=== PATIENT | female | born 1930 | race Caucasian/White ===

== ENCOUNTER 2018-01-06 14:36 | Inpatient (IN) | payer MEDICARE ==
[~2018-01-06] VITALS: Ht 165.1 cm; Wt 85.8 kg
--- NOTE | ~2018-01-06 | PSY ---
PATIENT NAME:CONSTANCE SALINAS MEDICAL RECORD: [id number] : 34 LOCATION:[facility] [place]1127 ADMISSION DATE: 01/06/18 ACCOUNT: [id number] PSYCHIATRIC EVALUATION DATE OF EVALUATION: 01/07/18 IDENTIFYING DATA: The patient is 87 years old and she is admitted to the hospital on a voluntary basis because of agitation. CHIEF COMPLAINT: None. HISTORY OF PRESENT ILLNESS: The patient lives in a local care home. She recently has become increasingly confused and agitated. The agitation has consisted of her screaming, being confused, attempting to stand and then falling. She has required multiple p.r.n. medications for this agitation and even though she is showing an extremely high level of emotional distress, she is verbal but unable to relate what the distress is about. PAST MEDICAL HISTORY: Significant for pneumonia, hypertension, coronary artery disease, and diabetes. PAST PSYCHIATRIC HISTORY: Significant for an established diagnosis of dementia. ALLERGIES: PENICILLIN. CURRENT MEDICATIONS: Include Depakote, Paxil, ibuprofen, Ativan, melatonin, Neurontin, Klonopin, Requip, Remeron, Mccaskill, aspirin, Lasix, metoprolol, vitamin D3, Glucophage, milk of magnesia, and Imodium. FAMILY HISTORY: Negative for psychiatric disease by her report, which is of questionable reliability. SOCIAL HISTORY: The patient does not smoke or drink and has never used recreational drugs. She is and has 3 children. She apparently functioned reasonably well both socially and occupationally. MENTAL STATUS EXAMINATION: The patient is awake, alert and oriented to person, place and somewhat to time and situation. Her mood is flat. Her affect is constricted. Thought processes are circumstantial. Memory, concentration and abstraction abilities are moderately impaired and the patient denies any intent to harm herself or others as well as any overt psychotic symptoms. ASSETS: Supportive family members. LIABILITIES: Limited insight. DIAGNOSTIC IMPRESSION: AXIS I: Senile dementia of the Alzheimer's type with behavioral disturbances. AXIS II: None. AXIS III: Diabetes, hypertension, peripheral neuropathy, constipation, coronary artery disease, osteoarthritis, and hypothyroidism. AXIS IV: Moderate stressors. AXIS V: Global Assessment of Functioning is 30. PLAN: At this time, the patient is admitted to the hospital for a comprehensive medical, psychological, and social evaluation. She will be treated with both mood stabilizing and memory enhancing medications. Her long-term prognosis is guarded. TRANSINT:[id number] Voice Confirmation ID: [id number] DOCUMENT ID: [id number] SAMARA BENAVIDEZ MD at 1337 CC: [id number] DICTATION DATE: 01/07/18 1454 HYDRAULIC JACK OPERATOR: 01/07/18 1531 ADM IN [place] [id number] [place] [address]
--- NOTE | ~2018-01-06 | PN ---
PATIENT:CONSTANCE SALINAS MEDICAL RECORD: [id number] LOCATION:AldenGretaYULIA [place]112 ADMISSION DATE: 01/06/18 PROGRESS NOTE DATE OF SERVICE: 01/08/2018 SUBJECTIVE: The patient's case was discussed with staff. She has no new complaint. OBJECTIVE: The patient is in good behavioral control with poor insight about her condition. She tolerates her medicines well. ASSESSMENT: No change in diagnoses. PLAN: Brief supportive and educational interventions were made. The patient is much calmer today. TRANSINT:[id number] Voice Confirmation ID: [id number] DOCUMENT ID: [id number] SAMARA BENAVIDEZ MD at 1331 CC: [id number] DICTATION DATE: 01/08/18 1351 CAREER DEVELOPMENT COORDINATOR: 01/08/18 1447 ADM IN [address] [address]
--- NOTE | ~2018-01-06 | PN ---
PATIENT:CONSTANCE SALINAS MEDICAL RECORD: [id number] LOCATION:KennyeYULIA [place]112 ADMISSION DATE: 01/06/18 PROGRESS NOTE DATE OF SERVICE: 01/28/2018 SUBJECTIVE: The patient's case was discussed with staff. She has no new complaint. OBJECTIVE: The patient denies intent to harm herself or others. She generally tolerates her medicines well. Eye contact is fair. ASSESSMENT: No change in diagnoses. PLAN: The patient will be [facility]ed [facility] today. Her long-term prognosis is guarded. TRANSINT:[id number] Voice Confirmation ID: [id number] DOCUMENT ID: [id number] SAMARA BENAVIDEZ MD at 1304 CC: [id number] DICTATION DATE: 01/28/18 1221 ROLL MECHANIC: 01/28/18 1245 DIS IN 01/28/18 [id number] [place] [address]
--- NOTE | ~2018-01-06 | PN ---
PATIENT:CONSTANCE SALINAS MEDICAL RECORD: [id number] LOCATION:KenneyYULIA [place]112 ADMISSION DATE: 01/06/18 PROGRESS NOTE DATE OF SERVICE: 01/23/2018 SUBJECTIVE: The patient's case was discussed with staff. She has no new complaint. OBJECTIVE: The patient is in good behavioral control with limited insight about her condition. She tolerates her medicines well. ASSESSMENT: No change in diagnoses. PLAN: Brief supportive and educational interventions were made. The patient has a urinary tract infection and is receiving IV therapy. I anticipate she can be transitioned out of the hospital after the weekend if her behavior and infection are under control. TRANSINT:[id number] Voice Confirmation ID: [id number] DOCUMENT ID: [id number] SAMARA BENAVIDEZ MD at 1921 CC: [id number] DICTATION DATE: 01/23/18 1409 BOAT OUTBOARD ENGINE MECHANIC: 01/23/18 1425 ADM IN [facility] [address] [place] [address]
--- NOTE | ~2018-01-06 | PN ---
PATIENT:CONSTANCE SALINAS MEDICAL RECORD: [id number] LOCATION:MAMADOU RuanoGreta112 ADMISSION DATE: 01/06/18 PROGRESS NOTE DATE OF SERVICE: 01/22/2018 SUBJECTIVE: The patient's case was discussed with staff. She has no new complaint. OBJECTIVE: The patient is in good behavioral control with poor insight about her condition. She tolerates her medicines well. ASSESSMENT: No change in diagnoses. PLAN: Current medicines and therapies have been reviewed and will be maintained. Long-term prognosis is guarded. I anticipate she can be transitioned out of the hospital soon if this level of improvement is maintained. TRANSINT:[id number] Voice Confirmation ID: [id number] DOCUMENT ID: [id number] SAMRAA BENAVIDEZ MD at 1247 CC: [id number] DICTATION DATE: 01/22/18 1338 DATA SCIENCES DIRECTOR: 01/22/18 1429 ADM IN [id number] [place] [address]
--- NOTE | ~2018-01-06 | PN ---
PATIENT:CONSTANCE SALINAS MEDICAL RECORD: [id number] LOCATION:MAMADOU [place]112 ADMISSION DATE: 01/06/18 PROGRESS NOTE DATE OF SERVICE: 01/16/2018 SUBJECTIVE: No new complaint. OBJECTIVE: The patient does call out a great deal, but for the most part is fairly well behaved. She did take her medications. On exam, mood is euthymic. Affect is reserved. Speech is somewhat tangential. Content of thought is negative for overt psychosis. Sensorium is unchanged. ASSESSMENT: No change in diagnosis. PLAN: 1. Continue current medications. 2. Continue supportive therapy. TRANSINT:[id number] Voice Confirmation ID: [id number] DOCUMENT ID: [id number] MADALYN BURNETT III, MD at 1142 CC: [id number] DICTATION DATE: 01/16/18 1216 AEROSPACE QUALITY ENGINEER: 01/16/18 1225 ADM IN [place] [id number] [place] [id number]
--- NOTE | ~2018-01-06 | PN ---
PATIENT:CONSTANCE SALINAS MEDICAL RECORD: [id number] LOCATION:MAMADOU RuanoGreta112 ADMISSION DATE: 01/06/18 PROGRESS NOTE DATE OF SERVICE: 01/13/2018 SUBJECTIVE: The patient's case was discussed with staff. She has no new complaint. OBJECTIVE: The patient is in good behavioral control with limited insight about her condition. She tolerates her medicines well. ASSESSMENT: No change in diagnoses. PLAN: Brief supportive and educational interventions were made. Long Term prognosis is guarded. I anticipate the patient can be transitioned out of the hospital soon if this level of improvement is maintained. TRANSINT:[id number] Voice Confirmation ID: [id number] DOCUMENT ID: [id number] SAMARA BENAVIDEZ MD at 1731 CC: [id number] DICTATION DATE: 01/13/18 1508 PUBLICIST: 01/13/18 1532 ADM IN [facility] [address] [place] [id number]
--- NOTE | ~2018-01-06 | PN ---
PATIENT:CONSTANCE SALINAS MEDICAL RECORD: [id number] LOCATION:KenneyYULIA [place]112 ADMISSION DATE: 01/06/18 PROGRESS NOTE DATE OF SERVICE: 01/09/2018 SUBJECTIVE: The patient's case was discussed with staff. She has no new complaint. OBJECTIVE: The patient is in good behavioral control with limited insight about her condition. She does tolerate her medicines well. ASSESSMENT: No change in diagnoses. PLAN: Supportive and educational interventions were made. Long-term prognosis is guarded. The patient is going to have her Klonopin reduced slightly. TRANSINT:[id number] Voice Confirmation ID: [id number] DOCUMENT ID: [id number] SAMARA BENAVIDEZ MD at 1355 CC: [id number] DICTATION DATE: 01/09/18 1345 MATTRESS SPRING ENCASER: 01/09/18 2058 ADM IN [facility] [address] [place] [address]
--- NOTE | ~2018-01-06 | PN ---
PATIENT:CONSTANCE SALINAS MEDICAL RECORD: [id number] LOCATION:KenneyYULIA [place]112 ADMISSION DATE: 01/06/18 PROGRESS NOTE DATE OF SERVICE: 01/27/2018 SUBJECTIVE: The patient's case was discussed with staff. She has no new complaint. OBJECTIVE: The patient is in good behavioral control with limited insight about her condition. She tolerates her medicines well. ASSESSMENT: No change in diagnoses. PLAN: Supportive and educational interventions were made. [facility] prognosis is guarded. I anticipate the patient can be transitioned out of the hospital tomorrow on current medications. TRANSINT:[id number] Voice Confirmation ID: [id number] DOCUMENT ID: [id number] SAMARA BENAVIDEZ MD at 1147 CC: [id number] DICTATION DATE: 01/27/18 1505 CUSHION GUM APPLICATOR: 01/27/18 1520 DIS IN 01/28/18 [address] [id number] [place] [address]
--- NOTE | ~2018-01-06 | PN ---
PATIENT:CONSTANCE SALINAS MEDICAL RECORD: [id number] LOCATION:NICKILashell Moulton112 ADMISSION DATE: 01/06/18 PROGRESS NOTE DATE OF SERVICE: 01/19/2018 SUBJECTIVE: The patient's case was discussed with staff. She has no new complaints. OBJECTIVE: The patient is in good behavioral control with limited insight about her condition. She tolerates her medicines well. ASSESSMENT: No change in diagnoses. PLAN: Supportive and educational interventions were made. [facility] prognosis is guarded. TRANSINT:[id number] Voice Confirmation ID: [id number] DOCUMENT ID: [id number] SAMARA BENAVIDEZ MD at 1417 CC: [id number] DICTATION DATE: 01/19/18 1404 CELERY TIER: 01/19/18 1415 ADM IN [place] [place] [address]
--- NOTE | ~2018-01-06 | PN ---
PATIENT:CONSTANCE SALINAS MEDICAL RECORD: [id number] LOCATION:MAMADOU Joyce ADMISSION DATE: 01/06/18 PROGRESS NOTE DATE OF SERVICE: 01/10/2018 SUBJECTIVE: The patient's case was discussed with staff. She has no new complaint. OBJECTIVE: The patient denies intent to harm herself or others. She tolerates her medicines well. ASSESSMENT: No change in diagnoses. PLAN: The patient's medicines are being crushed. Her oral intake is poor. I will consider starting her on Megace if this continues. I am not doing so right now because she is overweight. TRANSINT:[id number] Voice Confirmation ID: [id number] DOCUMENT ID: [id number] SAMARA BENAVIDEZ MD at 1355 CC: [id number] DICTATION DATE: 01/10/18 0837 SERIALS LIBRARIAN: 01/10/18 1203 ADM IN [facility] [address] [place] [address]
--- NOTE | ~2018-01-06 | PN ---
PATIENT:CONSTANCE SALINAS MEDICAL RECORD: [id number] LOCATION:MAMADOU [place]112 ADMISSION DATE: 01/06/18 PROGRESS NOTE DATE OF SERVICE: 01/20/2018 SUBJECTIVE: The patient's case was discussed with staff. She has no new complaint. OBJECTIVE: The patient has limited insight about her condition. She is significantly calmer today. She says she is not in any pain and I am encouraged by her situation given the fact that she was taking narcotics. ASSESSMENT: No change in diagnoses. PLAN: The patient will be maintained on current medicines, which I have reviewed. Her long-term prognosis is guarded. TRANSINT:[id number] Voice Confirmation ID: [id number] DOCUMENT ID: [id number] SAMARA BENAVIDEZ MD at 1224 CC: [id number] DICTATION DATE: 01/20/18 1453 LEGAL CONTRACTS SPECIALIST: 01/20/18 1522 ADM IN [facility] [address] [place] [address]
--- NOTE | ~2018-01-06 | DS ---
PATIENT:CONSTANCE SALINAS :34 MEDICAL RECORD: [id number] DISCHARGE SUMMARY ADMISSION DATE: 01/06/18 DISCHARGE DATE: 01/28/18 IDENTIFYING DATA: The patient is 87 years old and she was admitted to the hospital on a voluntary basis because of agitation. The patient lives in a local assisted where she recently has become increasingly confused and agitated. The patient has been screaming and attempting to stand and then falling. It is not that she is in any pain, she just thinks she can walk and is very agitated. She cannot be made to understand her circumstances or if she can, she quickly forgets. HOSPITAL COURSE: The patient was admitted to the hospital and fully evaluated from both a medical, psychological, and social standpoint. She was treated with both memory enhancing and mood stabilizing medications and did show significant improvement. She subsequently was transitioned back to the assisted. DISCHARGE DIAGNOSES: AXIS I: Senile dementia of the Alzheimer's type with behavioral disturbances. AXIS II: None. AXIS III: Diabetes, hypertension, peripheral neuropathy, constipation, coronary artery disease, osteoarthritis, and hypothyroidism. AXIS IV: Moderate stressors. AXIS V: Global assessment of functioning is 35. PLAN: At the time of discharge, the patient was in good behavioral control and had no active thoughts of harming herself or others. She was tolerating her medications well. Her long-term prognosis is guarded. TRANSINT:[id number] Voice Confirmation ID: [id number] DOCUMENT ID: [id number] SAMARA BENAVIDEZ MD at 1218 CC: [id number] DICTATION DATE: 02/03/18 1349 CREW TEAM MEMBER: 02/03/18 1449 DIS IN 01/28/18 [facility] [address] [place] [address]
--- NOTE | ~2018-01-06 | PN ---
PATIENT:CONSTANCE SALINAS MEDICAL RECORD: [id number] LOCATION:MAMADOU Joyce ADMISSION DATE: 01/06/18 PROGRESS NOTE DATE OF SERVICE: 01/15/2018 SUBJECTIVE: The patient's case was discussed with staff. She has no new complaint. OBJECTIVE: The patient denies intent to harm herself or others. She is severely impaired cognitively. She is yelling a little less than she has been. ASSESSMENT: No change in diagnoses. PLAN: The patient's hydrocodone is going to and I am not going to renew it. She has no complaints of pain. I am sure it is affecting her cognition. If analgesic is necessary, although consider some other medication if possible. TRANSINT:[id number] Voice Confirmation ID: [id number] DOCUMENT ID: [id number] SAMARA BENAVIDEZ MD at 1348 CC: [id number] DICTATION DATE: 01/15/18 1520 RETAIL SERVICE SPECIALIST: 01/15/18 1607 ADM IN [place] [id number] [place] [address]
--- NOTE | ~2018-01-06 | PN ---
PATIENT:CONSTANCE SALINAS MEDICAL RECORD: [id number] LOCATION:MAMADOU [place]112 ADMISSION DATE: 01/06/18 PROGRESS NOTE DATE OF SERVICE: 01/21/2018 SUBJECTIVE: The patient's case was discussed with staff. She has no new complaint. OBJECTIVE: The patient is in good behavioral control with limited insight about her condition. She generally tolerates her medicines well. ASSESSMENT: No change in diagnoses. PLAN: Brief supportive and educational interventions were made. The patient is quite impaired cognitively, but is much less agitated. She unfortunately did not sleep last night. I am going to prescribe trazodone at a dose of 50 mg for her. TRANSINT:[id number] Voice Confirmation ID: [id number] DOCUMENT ID: [id number] SAMARA BENAVIDEZ MD at 1318 CC: [id number] DICTATION DATE: 01/21/18 1232 DUMP WORKER: 01/21/18 1309 ADM IN [id number] [place] [address]
--- NOTE | ~2018-01-06 | PN ---
PATIENT:CONSTANCE SALINAS MEDICAL RECORD: [id number] LOCATION:MAMADOU Moulton112 ADMISSION DATE: 01/06/18 PROGRESS NOTE DATE OF SERVICE: 01/12/2018 SUBJECTIVE: The patient's case was discussed with staff. She has no new complaint. OBJECTIVE: The patient is in good behavioral control with poor insight about her condition. She tolerates her medicines well. ASSESSMENT: No change in diagnoses. PLAN: Supportive and educational interventions were made. The patient did not sleep last night, but appears fairly sedated today. I am going to hold her Klonopin and will probably restart it tomorrow just at bedtime. In addition to this, I am going to give her Namenda for its memory enhancing properties. TRANSINT:[id number] Voice Confirmation ID: [id number] DOCUMENT ID: [id number] SAMARA BENAVIDEZ MD at 1446 CC: [id number] DICTATION DATE: 01/12/18 1408 INSULATION BATTING MACHINE OPERATOR: 01/12/18 1442 [facility] IN [place] [address] [place] [id number]
--- NOTE | ~2018-01-06 | PN ---
PATIENT:CONSTANCE SALINAS MEDICAL RECORD: [id number] LOCATION:MAMADOU Joyce ADMISSION DATE: 01/06/18 PROGRESS NOTE DATE OF SERVICE: 01/14/2018 SUBJECTIVE: The patient's case was discussed with staff. She has no new complaint. OBJECTIVE: The patient is in good behavioral control with limited insight about her condition. She tolerates her medicines well. ASSESSMENT: No change in diagnoses. PLAN: Brief supportive and educational interventions were made. Group Home prognosis is guarded. I anticipate that she can be transitioned out of the hospital soon if this level of improvement is maintained. TRANSINT:[id number] Voice Confirmation ID: [id number] DOCUMENT ID: [id number] SAMARA BENAVIDEZ MD at 1459 CC: [id number] DICTATION DATE: 01/14/18 1741 HYDRO ELECTRIC STATION OPERATOR: 01/14/18 1820 ADM IN [facility] [address] [place] [id number]
--- NOTE | ~2018-01-06 | PN ---
PATIENT:CONSTANCE SALINAS MEDICAL RECORD: [id number] LOCATION:MAMADOU MoultonDoron ADMISSION DATE: 01/06/18 PROGRESS NOTE DATE OF SERVICE: 01/24/2018 SUBJECTIVE: The patient's case was discussed with staff. She has no new complaint. OBJECTIVE: The patient is in good behavioral control with limited insight about her condition. She tolerates her medicines well. She is certainly yelling much less and much more redirectable. I anticipate she can be transitioned back to the custodial soon. TRANSINT:[id number] Voice Confirmation ID: [id number] DOCUMENT ID: [id number] SAMARA BENAVIDEZ MD at 1809 CC: [id number] DICTATION DATE: 01/24/18 1041 CONVEYOR BELT INSTALLER: 01/24/18 1124 ADM IN [place] [id number] [place] [address]
--- NOTE | ~2018-01-06 | PN ---
PATIENT:CONSTANCE SALINAS MEDICAL RECORD: [id number] LOCATION:MAMADOU RuanoGreta112 ADMISSION DATE: 01/06/18 PROGRESS NOTE DATE OF SERVICE: 01/26/2018 SUBJECTIVE: The patient's case was discussed with staff. She has no new complaint. OBJECTIVE: The patient is in good behavioral control with limited insight about her condition. She tolerates her medicines well. ASSESSMENT: No change in diagnoses. PLAN: Brief supportive and educational interventions were made. Custodial prognosis is guarded. I am going to reduce the patient's trazodone slightly and would like to see if that is possible that she will rest adequately without it. TRANSINT:[id number] Voice Confirmation ID: [id number] DOCUMENT ID: [id number] SAMARA BENAVIDEZ MD at 1445 CC: [id number] DICTATION DATE: 01/26/18 1341 KITCHEN HAND: 01/26/18 1402 ADM IN [id number] [place] [address]
[2018-01-06] MEDS ORDERED: DEPAKOTE SPRIN125 MG PO (16:13)
[2018-01-06] MEDS ORDERED: PAXIL20 MG PO (16:15)
[2018-01-06] MEDS ORDERED: IBUPROFEN200 MG PO (16:17)
[2018-01-06] MEDS ORDERED: ATIVAN0.5 MG PO (16:18)
[2018-01-06] MEDS ORDERED: MELATONIN5 MG PO (16:20)
[2018-01-06] MEDS ORDERED: NEURONTIN 300300 MG (16:22)
[2018-01-06] MEDS ORDERED: KLONOPIN1 MG PO (16:24)
[2018-01-06] MEDS ORDERED: REQUIP0.25 MG PO (16:25)
[2018-01-06] MEDS ORDERED: REMERON15 MG/UDTA PO (16:26)
[2018-01-06] MEDS ORDERED: HYDROCODON-ACE1 EAC7 PO (16:31)
[2018-01-06] MEDS ORDERED: FUROSEMIDE40 MG PO (16:32)
[2018-01-06] MEDS ORDERED: ASPIRIN EC81 M1 PO (16:32)
[2018-01-06] MEDS ORDERED: METOPROLOL TAR100 M1 PO (16:33)
[2018-01-06] MEDS ORDERED: VITAMIN D31000 UNIT PO (16:34)
[2018-01-06] MEDS ORDERED: SENNA PLUS TA1 UDTAB PO (16:35)
[2018-01-06] MEDS ORDERED: GLUCOPHAGE500 MG PO (16:36)
[2018-01-06] MEDS ORDERED: MILK OF MAGNESI30 ML PO (16:38)
[2018-01-06] MEDS ORDERED: APAP325 MG PO (16:41)
[2018-01-06] MEDS ORDERED: NYSTATIN1 PWD TOPICAL (16:42)
[2018-01-06] MEDS ORDERED: PROVENTIL HFA6.7 GM INH (16:43)
[2018-01-06] MEDS ORDERED: IMODIUM2 MG PO (16:44)
[2018-01-06 17:09] LABS: BASOPHILS 0.2 % (0-2); EOSINOPHILS 1.6 % (0-7); HEMATOCRIT 33.1 % (36.0-48.0); IMMATURE GRANULOCYTES 0.6 % (0-5); MCH 27.4 pg (26.0-34.0); MCHC 30.2 g/dL (31.0-37.0); MCV 90.7 fL (80.0-100.0); MEAN PLATELET VOLUME 13.1 fL (7.4-10.4); MONOCYTES 15.7 % (2-11); NEUTROPHILS 39.9 % (40-80); PLATELET COUNT 84 10x3/uL (130-400); RBC 3.65 10x6/uL (4.00-5.40); RDW 15.5 % (11.5-14.5); WBC 4.9 10x3/uL (4.8-10.8)
[2018-01-06 17:38] LABS: ALBUMIN 3.1 g/dL (3.4-5.0); BILIRUBIN - TOTAL 0.28 mg/dL (0.2-1.3); CALCIUM 8.9 mg/dL (8.5-10.1); CARBON DIOXIDE 32.6 mmol/L (21.0-32.0); CHOL - HDL RATIO 4.2 ratio (2.3-4.1); CREATININE - SERUM 1.8 mg/dL (0.6-1.3); LDL-HDL RATIO 2.2 ratio (1.5-3.5); POTASSIUM - SERUM 4.6 mmol/L (3.5-5.1); PROTEIN - SERUM 7.7 g/dL (6.4-8.2); THYROID STIMULATING HORMONE 3.96 uIU/mL (0.36-3.74); VALPROIC ACID (DEPAKOTE) 24.3 ug/mL (50.0-100.0)
[2018-01-06 18:06] LABS: PLATELET ESTIMATE DECREASED
[2018-01-06 20:08] VITALS: BP 154/64
[2018-01-07 05:42] VITALS: BP 133/91
[2018-01-07 10:47] VITALS: BP 169/60
[2018-01-07 13:40] VITALS: BMI 31.4
[2018-01-07 20:06] VITALS: BP 147/80
[2018-01-08 07:31] LABS: FOLATE (FOLIC ACID) - SERUM 4.5 ng/mL (>3.0); VITAMIN D 25 HYDROXY 51.2 ng/mL (30.0-100.0)
[2018-01-08 09:42] LABS: ANION GAP 11.8 mmol/L (8-16); CALCIUM 9.1 mg/dL (8.5-10.1); CARBON DIOXIDE 32.2 mmol/L (21.0-32.0); CREATININE - SERUM 1.8 mg/dL (0.6-1.3)
[2018-01-09 08:54] LABS: APPEARANCE HAZY (CLEAR); BILIRUBIN NEGATIVE (NEGATIVE); COLOR YELLOW (YELLOW); GLUCOSE NEGATIVE (NEGATIVE); KETONE NEGATIVE (NEGATIVE); NITRITE NEGATIVE (NEGATIVE); PROTEIN TRACE mg/dL (NEGATIVE); SPECIFIC GRAVITY 1.005 (1.005-1.020); UROBILINOGEN NORMAL (NORMAL)
[2018-01-09 08:59] LABS: BACTERIA MODERATE /hpf (NONE SEEN); EPITHELIAL CELLS 0-5 /hpf (0-5); MUCUS <1+ /lpf (NONE SEEN); RED CELLS - URINE 0-5 /hpf (0-5); WHITE CELLS - URINE 25-50 /hpf (0-5)
[2018-01-09 20:22] VITALS: BP 180/70
[2018-01-10 06:54] LABS: BASOPHILS 0 % (0-2); HEMATOCRIT 34.5 % (36.0-48.0); HEMOGLOBIN 10.3 g/dL (12-16); IMMATURE GRANULOCYTES 1.2 % (0-5); LYMPHOCYTES 30.9 % (15-50); MCH 27.4 pg (26.0-34.0); MCHC 29.9 g/dL (31.0-37.0); MCV 91.8 fL (80.0-100.0); MEAN PLATELET VOLUME 11.6 fL (7.4-10.4); MONOCYTES 25.9 % (2-11); PLATELET COUNT 85 10x3/uL (130-400); RBC 3.76 10x6/uL (4.00-5.40); RDW 15.9 % (11.5-14.5); WBC 5.1 10x3/uL (4.8-10.8)
[2018-01-10 07:06] LABS: ANION GAP 14.4 mmol/L (8-16); CALCIUM 9.4 mg/dL (8.5-10.1); CARBON DIOXIDE 30.3 mmol/L (21.0-32.0); CREATININE - SERUM 1.7 mg/dL (0.6-1.3); POTASSIUM - SERUM 3.7 mmol/L (3.5-5.1)
[2018-01-10 07:34] LABS: PLATELET ESTIMATE DECREASED; PLATELET MORPHOLOGY GIANT PLTS PRESENT
[2018-01-10 09:57] VITALS: BP 185/52
[2018-01-10 20:01] VITALS: BP 180/80
[2018-01-11 07:00] VITALS: BP 141/59
[2018-01-11 19:30] VITALS: BP 143/067
[2018-01-12 07:00] VITALS: BP 171/60
[2018-01-12 19:49] VITALS: BP 127/61
[2018-01-13 19:42] VITALS: BP 167/47
[2018-01-14 09:52] VITALS: BP 163/51
[2018-01-14 20:30] VITALS: BP 160/63
[2018-01-15 10:33] VITALS: BP 133/61
[2018-01-15 20:29] VITALS: Ht 165.1 cm; Wt 85.8 kg
[2018-01-15 21:22] VITALS: BP 129/57
[2018-01-16 09:20] VITALS: BP 145/47
[2018-01-16 20:52] VITALS: BP 139/52
[2018-01-17 10:50] VITALS: BP 173/69
[2018-01-17 20:33] VITALS: BP 148/75
[2018-01-18 07:00] VITALS: BP 121/53
[2018-01-18 19:30] VITALS: BP 128/60
[2018-01-19 07:00] VITALS: BP 178/67
[2018-01-19 15:50] LABS: APPEARANCE HAZY (CLEAR); BILIRUBIN NEGATIVE (NEGATIVE); COLOR YELLOW (YELLOW); GLUCOSE NEGATIVE (NEGATIVE); KETONE NEGATIVE (NEGATIVE); NITRITE POSITIVE (NEGATIVE); PROTEIN 1+ mg/dL (NEGATIVE); UROBILINOGEN NORMAL (NORMAL)
[2018-01-19 15:55] LABS: BACTERIA MANY /hpf (NONE SEEN); EPITHELIAL CELLS 0-5 /hpf (0-5); RED CELLS - URINE OCC /hpf (0-5)
[2018-01-19 15:56] LABS: MUCUS <1+ /lpf (NONE SEEN)
[2018-01-19 19:43] VITALS: BP 167/64
[2018-01-20 07:00] VITALS: BP 158/60
[2018-01-20 21:09] VITALS: BP 176/72
[2018-01-21 12:02] VITALS: BP 165/47
[2018-01-22 02:12] VITALS: BP 163/57
[2018-01-22 10:08] VITALS: BP 172/95
[2018-01-22 19:16] VITALS: BP 169/73
[2018-01-23 09:47] VITALS: BP 173/54
[2018-01-23 19:55] VITALS: BP 139/71
[2018-01-24 07:53] VITALS: BP 177/55
[2018-01-24 19:15] VITALS: BP 178/53
[2018-01-25 07:00] VITALS: BP 191/79
[2018-01-25 11:02] LABS: ANION GAP 11.8 mmol/L (8-16); CALCIUM 8.6 mg/dL (8.5-10.1); CARBON DIOXIDE 26.7 mmol/L (21.0-32.0); CREATININE - SERUM 1.3 mg/dL (0.6-1.3); POTASSIUM - SERUM 3.5 mmol/L (3.5-5.1)
[2018-01-25 18:56] VITALS: BP 194/47
[2018-01-26 07:00] VITALS: BP 162/65
[2018-01-26 20:19] VITALS: BP 161/51
[2018-01-27 07:40] VITALS: BP 151/51
[2018-01-27] MEDS ORDERED: CARDURA2 MG PO (15:00)
[2018-01-27] MEDS ORDERED: LISINOPRIL10 MG PO (15:01)
[2018-01-27] MEDS ORDERED: GEODON20 MG PO (15:02)
[2018-01-27] MEDS ORDERED: TRAZODONE HCL50 MG PO (15:02)
[2018-01-27] MEDS ORDERED: VOLTAREN100 GM TOPICAL (15:02)
[2018-01-27] MEDS ORDERED: NAMENDA5 MG PO (15:02)
[2018-01-27] MEDS ORDERED: LIDODERM 5 %1 PATCH TRANSDERM (15:03)
[2018-01-27] MEDS ORDERED: CALMOSEPTINE OI71 GM TOPICAL (15:04)
[2018-01-27 19:30] VITALS: BP 174/54
[2018-01-28 07:55] VITALS: BP 153/47
== END 2018-01-28 11:42 | DRG 57 ==
LOC: D.PSYCH 14:36
PROVIDERS: Family Medicine; Psychiatry & Neurology Psychiatry; Student in an Organized Health Care Education/Training Program
DX: G30.1 Alzheimer's disease with late onset (principal); F02.81 Dementia in other diseases classified elsewhere, unspecified severity, with behavioral disturbance; N17.9 Acute kidney failure, unspecified; N39.0 Urinary tract infection, site not specified; E11.40 Type 2 diabetes mellitus with diabetic neuropathy, unspecified; D64.9 Anemia, unspecified; I10 Essential (primary) hypertension; K59.09 Other constipation; I25.10 Atherosclerotic heart disease of native coronary artery without angina pectoris; M19.90 Unspecified osteoarthritis, unspecified site; E03.9 Hypothyroidism, unspecified; E55.9 Vitamin D deficiency, unspecified; F41.8 Other specified anxiety disorders